=== PATIENT | female | born 1975 | race Caucasian/White ===

== ENCOUNTER 2017-12-09 17:40 | Emergency (ER) | payer BC, OTHER ==
[2017-12-09] MEDS ORDERED: Metoclopramide HCl 10 MG/2 ML VIAL ONE (18:04)
[2017-12-09] MEDS ORDERED: diphenhydrAMINE 25 MG CAP ONE (18:04)
[2017-12-09 18:19] LABS: #Basophils 0.1 thou/uL (0.0-0.2); #Eosinphils 0.1 thou/uL (0.0-0.7); #Lymphocytes 3.1 thou/uL (1.20-3.40); #Monocytes 0.5 thou/uL (0.11-0.59); #Neutrophils 4.7 thou/uL (1.40-6.50); %Basophils 0.9 % (0.0-1.0); %Eosinophils 0.9 % (0.0-10.0); %Lymphocytes 36.6 % (21.0-51.0); %Monocytes 5.8 % (0.0-10.0); %Neutrophils 55.9 % (42.0-75.0); Hemoglobin 11.5 g/dL (12.0-16.0); Mean Corpuscular HGB CONC 33.6 g/dL (32.0-36.0); Mean Corpuscular Hemoglobin 31.7 pg (27.0-31.0); Mean Corpuscular Volume 94.2 fL (78.0-98.0); Mean Platelet Volume 10.3 fL (7.4-10.4); Platelet Count 151 thou/uL (130-400); Red Blood Cell (RBC) Count 3.64 mill/uL (4.20-5.40); White Blood Cell (WBC) Count 8.4 thou/uL (4.8-10.8)
[2017-12-09 18:28] LABS: Anion Gap 12 mmol/L (10-20); BHCG - Serum Negative (NEGATIVE); BUN (Urea Nitrogen) 9 mg/dL (7.0-18.7); Calc. Creatinine Clearance 0 mL/min (70-130); Carbon Dioxide 25 mmol/L (22-29); Chloride 107 mmol/L (98-107); Estimated GFR-MDRD Greater than 90; Glucose 97 mg/dL (70-105); Potassium 3.9 mmol/L (3.5-5.1); Pregs Control Background? CLEAR/WHITE (CLR/WHITE); Pregs Control Bar Appear? YES (CONTROL BAR); Sodium 140 mmol/L (136-145)
[2017-12-09] MEDS ORDERED: Ketorolac Tromethamine 30 MG/ML VIAL ONE (18:46)
--- NOTE | 2017-12-09 19:14 | CT ---
CT HEAD NONCONTRAST: HISTORY: Headache. COMPARISON: None. FINDINGS: There is no evidence of acute intracranial hemorrhage or infarct. The ventricles appear normal in si ze, shape, and position. There is no mass effect or shift of midline structures. IMPRESSION: No acute intracranial abnormalities demonstrated. POS: [facility]
== END 2017-12-09 19:20 | disposition home or self-care (01) ==
LOC: SCSER 17:40
DX: R51 Headache (principal); K21.9 Gastro-esophageal reflux disease without esophagitis; F41.9 Anxiety disorder, unspecified; F43.10 Post-traumatic stress disorder, unspecified; Z79.899 Other long term (current) drug therapy
CPT/HCPCS: 70450; 80048; 84703; 85025; 93005; 96365; 96372; J1885; J2765

== ENCOUNTER 2017-12-11 15:40 | Emergency (ER) | payer OTHER ==
[2017-12-11 16:44] LABS: BHCG - Serum Negative (NEGATIVE); Pregs Control Background? CLEAR/WHITE (CLR/WHITE); Pregs Control Bar Appear? YES (CONTROL BAR)
[2017-12-11 16:46] LABS: #Basophils 0.1 thou/uL (0.0-0.2); #Eosinphils 0.1 thou/uL (0.0-0.7); #Lymphocytes 3.2 thou/uL (1.20-3.40); #Monocytes 0.3 thou/uL (0.11-0.59); #Neutrophils 3.3 thou/uL (1.40-6.50); %Basophils 1.2 % (0.0-1.0); %Eosinophils 1.3 % (0.0-10.0); %Lymphocytes 45.6 % (21.0-51.0); %Monocytes 4.3 % (0.0-10.0); %Neutrophils 47.6 % (42.0-75.0); Hemoglobin 12.2 g/dL (12.0-16.0); Mean Corpuscular HGB CONC 33.2 g/dL (32.0-36.0); Mean Corpuscular Hemoglobin 30.8 pg (27.0-31.0); Mean Corpuscular Volume 92.6 fL (78.0-98.0); Mean Platelet Volume 8.8 fL (7.4-10.4); Platelet Count 179 thou/uL (130-400); RBC Distribution Width 11.1 % (11.5-14.5); Red Blood Cell (RBC) Count 3.96 mill/uL (4.20-5.40)
[2017-12-11 16:53] LABS: ALT (SGPT) 9 U/L (8-55); AST (SGOT) 9 U/L (5-34); Albumin 4.4 g/dL (3.5-5.0); Alkaline Phosphatase 34 U/L (40-150); Anion Gap 14 mmol/L (10-20); BUN (Urea Nitrogen) 5 mg/dL (7.0-18.7); Bilirubin, Total 0.2 mg/dL (0.2-1.2); CK (CPK) 54 U/L (29-168); Calc. Creatinine Clearance 0 mL/min (70-130); Calcium 9.6 mg/dL (7.8-10.44); Carbon Dioxide 21 mmol/L (22-29); Chloride 107 mmol/L (98-107); Estimated GFR-MDRD 88; Globulin 2.5 g/dL (2.4-3.5); Glucose 100 mg/dL (70-105); Potassium 3.1 mmol/L (3.5-5.1); Protein, Total 6.9 g/dL (6.0-8.3); Sodium 139 mmol/L (136-145)
[2017-12-11 16:55] LABS: CKMB 0.5 ng/mL (0-6.6); Troponin I Less than 0.010 ng/mL (< 0.028)
[2017-12-11 17:09] LABS: Bilirubin Negative (Negative); Blood, Urine Negative (Negative); Clarity Clear (Clear); Glucose, Urine (Dipstick) Negative (Negative); Leukocyte Negative (Negative); Nitrite Negative (Negative); Protein, Urine (Dipstick) Negative (Neg-Trace); Specific Gravity, Urine 1.015 (1.005-1.030); Urobilinogen 0.2 mg/dL (0.2-1.0); pH, Urine 7.5 (5.0-9.0)
[2017-12-11] MEDS ORDERED: Potassium Chloride 20 MEQ TAB ONE (17:29)
[2017-12-11] MEDS ORDERED: Potassium Chloride 10 MEQ TAB ONE (17:29)
[2017-12-11] MEDS ORDERED: Ketorolac Tromethamine 30 MG/ML VIAL ONE (17:31)
[2017-12-11] MEDS ORDERED: Ondansetron HCl/PF 4 MG/2 ML Vial ONE (18:01)
[2017-12-11] MEDS ORDERED: Sucralfate 1 GM TAB ONE (19:05)
--- NOTE | 2017-12-11 19:35 | RAD ---
PORTABLE CHEST ONE VIEW: 12/11/17 at 5:46 p.m. HISTORY: Chest pain. FINDINGS: The heart size is normal. The lungs are expanded without focal areas of consolidation, pneumothoraces or pleural effusions. There is evidence of old granulomatous disease. IMPRESSION: No acute process. POS: [facility]
== END 2017-12-11 19:00 | disposition home or self-care (01) ==
LOC: SCSER 15:40
DX: R07.89 Other chest pain (principal); R51 Headache; E87.6 Hypokalemia; R20.2 Paresthesia of skin; K21.9 Gastro-esophageal reflux disease without esophagitis; I10 Essential (primary) hypertension; Z79.899 Other long term (current) drug therapy
CPT/HCPCS: 71045; 80053; 81003; 82553; 84443; 84484; 84703; 85025; 85379; 93005; 96361; 96374; 96375; J1885; J2405

== ENCOUNTER 2017-12-15 13:44 | Emergency (ER) | payer BC, OTHER ==
[2017-12-15 15:37] LABS: #Basophils 0.1 thou/uL (0.0-0.2); #Eosinphils 0.1 thou/uL (0.0-0.7); #Lymphocytes 2.4 thou/uL (1.20-3.40); #Monocytes 0.4 thou/uL (0.11-0.59); #Neutrophils 5.8 thou/uL (1.40-6.50); %Basophils 0.9 % (0.0-1.0); %Eosinophils 0.7 % (0.0-10.0); %Lymphocytes 27.7 % (21.0-51.0); %Monocytes 4.1 % (0.0-10.0); %Neutrophils 66.7 % (42.0-75.0); Hemoglobin 12.3 g/dL (12.0-16.0); Mean Corpuscular HGB CONC 32.6 g/dL (32.0-36.0); Mean Corpuscular Hemoglobin 30.6 pg (27.0-31.0); Mean Corpuscular Volume 93.9 fL (78.0-98.0); Mean Platelet Volume 9.9 fL (7.4-10.4); Platelet Count 161 thou/uL (130-400); RBC Distribution Width 11.4 % (11.5-14.5); Red Blood Cell (RBC) Count 4.01 mill/uL (4.20-5.40); White Blood Cell (WBC) Count 8.8 thou/uL (4.8-10.8)
[2017-12-15 15:39] LABS: Bilirubin Negative (Negative); Blood, Urine Negative (Negative); Clarity Clear (Clear); Glucose, Urine (Dipstick) Negative (Negative); Leukocyte Trace (Negative); Nitrite Negative (Negative); Protein, Urine (Dipstick) Negative (Neg-Trace); Urobilinogen 0.2 mg/dL (0.2-1.0)
[2017-12-15 15:45] LABS: Bacteria/HPF 2+ HPF (None Seen); RBC/HPF 0-3 HPF (0-3); WBC/HPF 0-3 HPF (0-3)
[2017-12-15 15:53] LABS: BHCG - Serum Negative (NEGATIVE); Pregs Control Background? CLEAR/WHITE (CLR/WHITE); Pregs Control Bar Appear? YES (CONTROL BAR)
[2017-12-15 15:59] LABS: Anion Gap 14 mmol/L (10-20); BUN (Urea Nitrogen) 8 mg/dL (7.0-18.7); Calc. Creatinine Clearance 0 mL/min (70-130); Calcium 9.3 mg/dL (7.8-10.44); Carbon Dioxide 19 mmol/L (22-29); Chloride 109 mmol/L (98-107); Estimated GFR-MDRD 81; Glucose 83 mg/dL (70-105); Potassium 3.3 mmol/L (3.5-5.1); Sodium 139 mmol/L (136-145)
== END 2017-12-15 16:45 | disposition left against medical advice (07) ==
LOC: SCSER 13:44
DX: R20.2 Paresthesia of skin (principal); R51 Headache; R06.02 Shortness of breath; R53.1 Weakness; K21.9 Gastro-esophageal reflux disease without esophagitis; I10 Essential (primary) hypertension; F41.9 Anxiety disorder, unspecified; F43.10 Post-traumatic stress disorder, unspecified; R11.0 Nausea; R03.1 Nonspecific low blood-pressure reading; Z79.899 Other long term (current) drug therapy
CPT/HCPCS: 80048; 81003; 81015; 84703; 85025; 93005

== ENCOUNTER 2017-12-21 13:09 | Outpatient (CLI) | payer SELFPAY ==
--- NOTE | 2017-12-21 16:53 | MRI ---
MRI BRAIN WITH AND WITHOUT CONTRAST: 12/21/17 HISTORY: Headache. Tingling. Pressure. Vascular headache. COMPARISON: None. TECHNIQUE: MRI of brain is performed with and without intravenous gadolinium administration. Multisequential, mu ltiplanar imaging is performed. FINDINGS: No hemorrhage on the axial gradient echo sequence. The calvarium has a normal T1 marrow signal intensity. Midline brain parenchymal structures are unrem arkable. No parenchymal mass, mass effect, or midline shift. Age appropriate atrophy. Cortical bah-white amber er differentiation is preserved. Ventricles and sulci are patent and symmetric. No significant white matter hyperintensity in the axial T2 and FLAIR sequence. Central arterial flow voids are maintained. Absence of restricted diffusion. Adequate aeration of the sinuses and mastoid air cells. No pathologic enhancement of the brain parenchyma. IMPRESSION: Unremarkable pre and postcontrast brain MRI. POS: [facility]
== END 2017-12-21 13:10 | disposition home or self-care (01) ==
LOC: SCSMRI 13:09
PROVIDERS: ATTEND Psychiatry & Neurology Neurology
DX: G44.1 Vascular headache, not elsewhere classified (principal)
CPT/HCPCS: 70553

== ENCOUNTER 2018-03-29 09:56 | Outpatient (CLI) | payer OTHER ==
--- NOTE | 2018-03-29 15:43 | NM ---
NUCLEAR MEDICINE 3-PHASE BONE SCAN: HISTORY: Chronic pain syndrome, right hip pain worsening over time. Concern for stress fracture. Right lower extremity swelling. FINDINGS: The patient was injected with 32 mCi Technetium 99m MDP intravenously. Flow studies demonstrate no e vidence for abnormal increased activity. Immediate and delayed spot films of the pelvis demonstrate no significant focal areas of abnormal or altered osteogenesis. In particular, no evidence for signi ficant abnormal increased activity in the right hip region. Whole body images demonstrate some abnormal increased activity in both shoulders, evidence for arthro sis and degenerative change. There is bilateral renal and bladder activity. On the anterior image, the bladder somewhat overlies the pubic symphysis region. Again, no scan evidence for abnormal incre ased activity in the right hip or proximal femur. IMPRESSION: Increased activity in the shoulders, evidence for arthrosis or degenerative change. No evidence for significant abnormal increased activity in the region of the right hip. On the anterior views, the b ladder overlies the symphysis. If there remains clinical concern for a stress-related injury or stress fracture, followup MRI would be strongly recommended which could certainly rule out this possibility much easier than with a bone scan. POS: [facility]
== END 2018-03-29 09:57 | disposition home or self-care (01) ==
LOC: NM 09:56
DX: G89.4 Chronic pain syndrome (principal)
CPT/HCPCS: 78315; A9503

== ENCOUNTER 2018-10-04 08:45 | Outpatient (CLI) | payer OTHER ==
--- NOTE | 2018-10-04 09:30 | ULT ---
US Gallbladder RUQ History: Right upper quadrant pain. Comparison: None. Findings: Real-time grayscale and color evaluation of the right upper quadrant of the abdomen was per formed. Pancreas is not well seen. Visualized portion of the aorta and IVC are unremarkable. No hepatic mass. Liver measures 15.8 cm in length. Portal vein is patent with antegrade flow. Common bile duct is norm al measuring 4 mm. Gallbladder wall thickness is normal. Negative sonographic Forman sign. Sludge within the gallbladder . No cholecystitis. Right kidney measures 9.7 x 4.4 x 5.5 cm without mass, hydronephrosis, or abnormal calcifications. Impression: Gallbladder sludge without cholecystitis.
== END 2018-10-04 08:46 | disposition home or self-care (01) ==
LOC: SCSULT 08:45
DX: R10.11 Right upper quadrant pain (principal); K82.8 Other specified diseases of gallbladder
CPT/HCPCS: 76705

== ENCOUNTER 2018-11-22 07:46 | Outpatient (CLI) | payer OTHER ==
--- NOTE | 2018-12-06 12:16 | NM ---
HEPATOBILIARY SCAN: HISTORY: Disorder of gallbladder and biliary tract. COMPARISON: Gallbladder ultrasound from 10/04/2018. TECHNIQUE: A hepatobiliary scan was performed after the administration of 5.2 millicuries of technetium 99m mebr ofenin. FINDINGS: Uptake of the radiopharmaceutical by the liver is seen. No photopenic liver lesions are seen. Biliary and gallbladder activity is seen within 5 minutes. Bowel activity is seen within 13 minutes. The gallbladder ejection fraction was estimated, after administration of 8 oz of Ensure p.o., at 99%. IMPRESSION: Normal hepatobiliary scan. POS: [facility]
== END 2018-11-22 07:47 | disposition home or self-care (01) ==
LOC: NM 07:46
DX: K87 Disorders of gallbladder, biliary tract and pancreas in diseases classified elsewhere (principal)
CPT/HCPCS: 78227; A9537